=== PATIENT | female | born 1980 | race Caucasian/White ===

== ENCOUNTER 2017-07-13 06:50 | Day surgery (SDC) | payer OTHER ==
[~2017-07-13] VITALS: Ht 162.6 cm; Wt 86.3 kg
[~2017-07-13 06:50] MED LIST: BENADRYL25 MG PO; ESSENTIAL WOMA1 EAC1 PO; IRON325 M1 PO
[2017-07-13 07:20] VITALS: BP 125/82
[2017-07-13 11:06] VITALS: BP 118/71
== END 2017-07-13 12:45 | disposition home or self-care (01) ==
LOC: SDC → EDBD → SDC 06:50
DX: N92.0 Excessive and frequent menstruation with regular cycle (principal); N86 Erosion and ectropion of cervix uteri
CPT/HCPCS: 88305; 88307; J1100; J1170; J2250; J3010